=== PATIENT | male | born 1970 | race Caucasian/White ===

== ENCOUNTER 2021-08-10 13:48 | Inpatient (IN) | payer MEDICAID, SELFPAY ==
[~2021-08-10] VITALS: Ht 172.7 cm; Wt 104.3 kg
[2021-08-10 13:50] VITALS: BP 117/72
--- NOTE | 2021-08-10 14:01 | NUR ---
Patient BIBA to bed 14.
[2021-08-10 14:15] LABS: BASOPHILS # (AUTO) 0.1 K/uL (0.00-0.22); BASOPHILS % (AUTO) 0.9 % (0.0-2.0); EOSINOPHILS # (AUTO) 0.4 K/uL (0-0.4); EOSINOPHILS % (AUTO) 4.2 % (0.0-4.0); HEMATOCRIT 31.6 % (36-52); HEMOGLOBIN 10.9 g/dL (12.0-18.0); LYMPHOCYTES # (AUTO) 2.5 K/uL (2.0-11.5); LYMPHOCYTES % (AUTO) 29.9 % (20.5-51.1); MEAN CORPUSCULAR HEMOGLOBIN 32 pg (27-31); MEAN CORPUSCULAR HGB CONC 34 g/dL (33-37); MEAN CORPUSCULAR VOLUME 91.5 fL (80-94); MONOCYTES # (AUTO) 0.5 K/uL (0.8-1.0); MONOCYTES % (AUTO) 6.2 % (1.7-9.3); NEUTROPHILS % (AUTO) 58.8 % (42.2-75.2); PLATELET COUNT (AUTO) 229 K/uL (140-450); RED BLOOD CELL COUNT(AUTO) 3.45 MIL/uL (4.20-6.10); RED CELL DISTRIBUTION WIDTH 14.2 % (11.6-13.7); WHITE BLOOD COUNT (AUTO) 8.4 K/uL (4.8-10.8)
--- NOTE | 2021-08-10 14:20 | NUR ---
PT TAKEN TO XRAY VIA [facility]
--- NOTE | 2021-08-10 14:25 | NUR ---
PT RETURNED FROM XRAY
--- NOTE | 2021-08-10 14:30 | NUR ---
50 Y/O MALE BIBA FROM SIDE OF ROAD C/O 10/10 SUBSTERNAL CHEST PAIN. PT WAS GIVEN 4 NITRO AND 324MG OF ASPIRIN WITH NO RELIEF. PT SEEN AT [facility] YESTERDAY FOR SAME COMPLAINT. PT STATES 04/30 CONTINUOUS SHARP PAIN, NON RADIATING. PMH:ME, CVA, DM, HTN NKDA
[2021-08-10] MEDS ORDERED: BENA20TA PO (14:48)
[2021-08-10] MEDS ORDERED: ASPI-1749 PO (14:48)
[2021-08-10] MEDS ORDERED: VIT1TAB10 PO (14:48)
[2021-08-10] MEDS ORDERED: PAX10 PO (14:48)
[2021-08-10] MEDS ORDERED: METF-1022 PO (14:48)
[2021-08-10] MEDS ORDERED: VITA1TAB44 PO (14:48)
--- NOTE | 2021-08-10 15:03 | NUR ---
JONATHAN SWAB COLLECTED AND DROPPED OUT AT LAB WITH ADALI HERMAN
[2021-08-10 15:24] LABS: ALBUMIN 3.3 g/dL (3.4-5.0); ANION GAP 18.5 (8-16); CARBON DIOXIDE 22.1 mmol/L (21-32); CREATININE 0.7 mg/dL (0.6-1.3); POTASSIUM 3.6 mmol/L (3.5-5.1); TOTAL BILIRUBIN 0.6 mg/dL (0.0-1.0)
--- NOTE | 2021-08-10 16:00 | NUR ---
PT C/O 10/10 CHEST PAIN, ERMD MADE AWARE.
[2021-08-10] MEDS ORDERED: MORPHINE SULFATE 4 MG/ML SYR IVP ONE (16:10)
[2021-08-10] MEDS ORDERED: MORPHINE SULFATE 2 MG/ML SYR ONE (18:52)
[2021-08-10] MEDS ORDERED: MORPHINE SULFATE 2 MG/ML SYR IVP PRN ×3 (19:00→22:30)
--- NOTE | 2021-08-10 19:25 | NUR ---
Pt report given to MARI BORJAS. Transfer of care at this time.
[2021-08-10] MEDS ORDERED: ACETAMINOPHEN 325 MG TAB PO PRN (22:30)
[2021-08-10] MEDS ORDERED: NITROGLYCERIN 0.4 MG TAB SL PRN (22:30)
[2021-08-10] MEDS ORDERED: ZOLPIDEM 5 MG TAB PO PRN (22:30)
[2021-08-10] MEDS ORDERED: ONDANSETRON 4 MG/2 ML VIAL IVP PRN (22:30)
[2021-08-10] MEDS ORDERED: HYDROcodone/APAP 5/325 MG 1 TAB TAB PO PRN (22:30)
[2021-08-10] MEDS ORDERED: ALUMINUM HYD/MAG/SIMETHICONE 30 ML UDC PO PRN (22:30)
[2021-08-10 23:22] LABS: CREATINE KINASE MB 1.1 ng/mL (0-3.6)
[2021-08-10] MEDS: LORazepam 1 MG TAB PO PRN (23:34)
--- NOTE | 2021-08-10 23:52 | NUR ---
DROPPPED OFF URINE AT LAB
--- NOTE | 2021-08-11 00:10 | NUR ---
PT VISUALLY IN PAIN. PT WAS DIAPHORETIC. TEMP WAS TAKEN AND WAS AT 97.5
[2021-08-11 00:31] LABS: BARBITURATE, URINE NEGATIVE ng/ml (NEG <=200); BENZODIAZEPINE, URINE POSITIVE ng/mL (NEG <=200); CANNABINOID, URINE POSITIVE ng/mL (NEG <=50); COCAINE, URINE NEGATIVE ng/mL (NEG <=300); OPIATE, URINE POSITIVE ng/mL (NEG <=2000); PHENCYCLIDINE SCREEN,URINE NEGATIVE ng/mL (NEG <=25)
--- NOTE | 2021-08-11 04:08 | NUR ---
Patient appears to be resting comfortably in bed. Vital Signs within normal limits. Respirations even and unlabored. NO LONGER DIAPHORETIC
--- NOTE | 2021-08-11 07:30 | NUR ---
REPORT RECEIVED FROM SUAD GUERRA. PATIENT CONTINUITY OF CARE ASSUMED AT THIS TIME.
[2021-08-11] MEDS: metFORMIN 500 MG TAB PO SCH ×2 (08:23→17:30)
[2021-08-11 08:40] LABS: BASOPHILS # (AUTO) 0.1 K/uL (0.00-0.22); BASOPHILS % (AUTO) 0.8 % (0.0-2.0); EOSINOPHILS # (AUTO) 0.2 K/uL (0-0.4); EOSINOPHILS % (AUTO) 3.5 % (0.0-4.0); HEMATOCRIT 32.1 % (36-52); HEMOGLOBIN 10.9 g/dL (12.0-18.0); LYMPHOCYTES # (AUTO) 1.3 K/uL (2.0-11.5); MEAN CORPUSCULAR HEMOGLOBIN 31 pg (27-31); MEAN CORPUSCULAR HGB CONC 34 g/dL (33-37); MONOCYTES # (AUTO) 0.5 K/uL (0.8-1.0); MONOCYTES % (AUTO) 8.6 % (1.7-9.3); NEUTROPHILS # (AUTO) 4.1 K/uL (1.8-7.7); NEUTROPHILS % (AUTO) 66.1 % (42.2-75.2); PLATELET COUNT (AUTO) 217 K/uL (140-450); RED BLOOD CELL COUNT(AUTO) 3.49 MIL/uL (4.20-6.10); RED CELL DISTRIBUTION WIDTH 14.3 % (11.6-13.7); WHITE BLOOD COUNT (AUTO) 6.2 K/uL (4.8-10.8)
[2021-08-11] MEDS ORDERED: VITAMIN B COMPLEX W/C 1 TAB PO SCH (09:00)
[2021-08-11] MEDS: LORazepam 1 MG TAB PO PRN (09:03)
[2021-08-11] MEDS: DOCUSATE SODIUM 100 MG GELCAP PO SCH (09:04)
[2021-08-11] MEDS: ASPIRIN 81 MG TAB.CHEW PO SCH (09:04)
[2021-08-11] MEDS: VIT-B COMP/VIT-C/FOLIC ACID 1 TAB PO SCH (09:04)
[2021-08-11 09:09] LABS: ALBUMIN 3.1 g/dL (3.4-5.0); ANION GAP 11.7 (8-16); CARBON DIOXIDE 28.2 mmol/L (21-32); CREATININE 0.6 mg/dL (0.6-1.3); MAGNESIUM 1.6 mg/dL (1.8-2.4); PHOSPHORUS 3.9 mg/dL (2.5-4.9); POTASSIUM 3.9 mmol/L (3.5-5.1); TOTAL BILIRUBIN 0.9 mg/dL (0.0-1.0)
[2021-08-11] MEDS: PARoxetine 10 MG TAB PO SCH (09:20)
--- NOTE | 2021-08-11 16:20 | NUR ---
PATIENT HAS BEEN SCREENED AND CATEGORIZED MODERATE NUTRITION RISK. PATIENT WILL BE SEEN WITHIN 3-5 DAYS OF ADMISSION. [address]
--- NOTE | 2021-08-11 19:27 | NUR ---
Pt report given to SUAD GUERRA. Transfer of care at this time.
[2021-08-11] MEDS ORDERED: BENAZEPRIL 20 MG TAB PO SCH (21:00)
[2021-08-11] MEDS ORDERED: SIMVASTATIN 20 MG TAB PO SCH (21:00)
--- NOTE | 2021-08-11 22:00 | NUR ---
PT SISTER CALLED. SISTER CLAIMS PT DRINKS WHEN HE IS DEPRESSED. EXPRESSED INTEREST IN GETTING HIM IN A PROGRAM FOR ALCHOLICS
--- NOTE | 2021-08-11 22:00 | NUR ---
Vibha rogers in ED - 08/12/21 at 0027 by LIEN PT SISTER CALLED. SISTER CLAIMS ROSA ISELA RUBALCAVA WHEN HE IS DEPRESSED. EXPRESSED INTEREST IN GETTING HIM IN A PROGRAM FOR ALCHOLICS
[2021-08-11 23:25] LABS: CREATINE KINASE MB 0.3 ng/mL (0-3.6)
--- NOTE | 2021-08-12 01:54 | NUR ---
PT AMBULATED TO BATHROOM. STEADY AND EVEN GAIT
--- NOTE | 2021-08-12 05:30 | NUR ---
P-T AMBULATE TO BATHROOM. GAIT STEADY AND EVEN.
--- NOTE | 2021-08-12 07:35 | NUR ---
Report and continuation of care received from INOCENCIA Esquivel.
--- NOTE | 2021-08-12 10:48 | NUR ---
PAGED DR OTERO REGARDING PT AND POSSIBLE DC.
[2021-08-12] MEDS: LORazepam 1 MG TAB PO PRN (10:54)
[2021-08-12] MEDS: metFORMIN 500 MG TAB PO SCH (10:58)
[2021-08-12] MEDS: ASPIRIN 81 MG TAB.CHEW PO SCH (10:59)
[2021-08-12] MEDS: VIT-B COMP/VIT-C/FOLIC ACID 1 TAB PO SCH (11:00)
[2021-08-12] MEDS: DOCUSATE SODIUM 100 MG GELCAP PO SCH (11:00)
[2021-08-12] MEDS: PARoxetine 10 MG TAB PO SCH (11:01)
[2021-08-12 11:30] LABS: BASOPHILS # (AUTO) 0.1 K/uL (0.00-0.22); BASOPHILS % (AUTO) 1.1 % (0.0-2.0); EOSINOPHILS # (AUTO) 0.4 K/uL (0-0.4); EOSINOPHILS % (AUTO) 6.2 % (0.0-4.0); HEMATOCRIT 33.3 % (36-52); HEMOGLOBIN 11.2 g/dL (12.0-18.0); LYMPHOCYTES # (AUTO) 1.6 K/uL (2.0-11.5); LYMPHOCYTES % (AUTO) 27.5 % (20.5-51.1); MEAN CORPUSCULAR HEMOGLOBIN 31 pg (27-31); MEAN CORPUSCULAR HGB CONC 34 g/dL (33-37); MEAN CORPUSCULAR VOLUME 93.7 fL (80-94); MONOCYTES # (AUTO) 0.3 K/uL (0.8-1.0); MONOCYTES % (AUTO) 5.3 % (1.7-9.3); NEUTROPHILS # (AUTO) 3.6 K/uL (1.8-7.7); NEUTROPHILS % (AUTO) 59.9 % (42.2-75.2); PLATELET COUNT (AUTO) 215 K/uL (140-450); RED BLOOD CELL COUNT(AUTO) 3.56 MIL/uL (4.20-6.10); RED CELL DISTRIBUTION WIDTH 14.3 % (11.6-13.7)
[2021-08-12 11:49] LABS: ANION GAP 12.8 (8-16); CARBON DIOXIDE 26.9 mmol/L (21-32); CREATININE 0.7 mg/dL (0.6-1.3); POTASSIUM 3.7 mmol/L (3.5-5.1)
--- NOTE | 2021-08-12 12:30 | NUR ---
spoke to dr acosta with orders to dc home and f/u for outpt stress test. spoke to dr sauer to make aware. pt verbalizes dc instructions. no acute distress noted. stable on dc.
[2021-08-12 12:31] VITALS: BP 127/70
== END 2021-08-12 12:31 | disposition home or self-care (01) | DRG 190 ==
LOC: MED 13:48 → MTU 17:12
PROVIDERS: ADMIT Preventive Medicine Preventive Medicine/Occupational Environmental Medicine; ATTEND Preventive Medicine Preventive Medicine/Occupational Environmental Medicine
DX: I21.4 Non-ST elevation (NSTEMI) myocardial infarction (principal); E87.1 Hypo-osmolality and hyponatremia; E11.65 Type 2 diabetes mellitus with hyperglycemia; E88.09 Other disorders of plasma-protein metabolism, not elsewhere classified; F11.90 Opioid use, unspecified, uncomplicated; D64.9 Anemia, unspecified; F13.90 Sedative, hypnotic, or anxiolytic use, unspecified, uncomplicated; I24.9 Acute ischemic heart disease, unspecified; F15.90 Other stimulant use, unspecified, uncomplicated; I10 Essential (primary) hypertension; Z20.822 Contact with and (suspected) exposure to COVID-19; F12.90 Cannabis use, unspecified, uncomplicated; Z79.82 Long term (current) use of aspirin; Z79.84 Long term (current) use of oral hypoglycemic drugs; I25.2 Old myocardial infarction; Z86.73 Personal history of transient ischemic attack (TIA), and cerebral infarction without residual deficits; Z72.89 Other problems related to lifestyle
CPT/HCPCS: 36415; 71045; 80048; 80053; 80305; 82550; 82553; 83690; 83735; 84100; 84484; 85025; 93005; 96374; 96376; 99291; G0482; J1644; J2270